=== PATIENT | female | born 1995 ===

== ENCOUNTER 2020-04-28 10:56 | Emergency (ER) | payer MEDICAID ==
--- NOTE | 2020-04-28 13:05 | Emergency Department Report ---
ED General Adult HPI - General Chief complaint: Vaginal Bleeding Stated complaint: VAGINAL BLEEDING Time Seen by Provider: 04/28/20 12:50 Source: patient Mode of arrival: Ambulatory Limitations: No Limitations - History of Present Illness Initial comments: Patient is a 24-year-old female who presents emergency room with complaints of "wanting to know if she has COVID-19." Patient states that she has had URI symptoms for 4 days. She states that she has had fever, chills, generalized body aches, cough, headache. She states that her boyfriend was at home sick prior to her becoming sick therefore she has had a sick contact with similar symptoms. She denies any vomiting, diarrhea, chest pain, abdominal pain, shortness of breath, productive cough. She denies any recent travel. Patient reports that she is also had some vaginal spotting for the last couple of days. She states that her last menstrual cycle was 04/11/2020. She denies any abdomi nal pain, pelvic pain, back pain, dysuria, urinary frequency, dark urine, odor to the urine, vaginal discharge, concern for STDs. She states that she does have a history of ovarian cyst and is not currently on any control. She states that she has had irregular cycles in the past. She denies any other past medical history. No allergies to medications. Severity scale (0 -10): 8 - Related Data Allergies Allergy/AdvReac Type Severity Reaction Status Date / Time No Known Allergies Allergy Unverified 04/28/20 11:47 ED Review of Systems ROS: Stated complaint: VAGINAL BLEEDING Other details as noted in HPI Comment: All other systems reviewed and negative ED Past Medical Hx - Past Medical History Previous Medical History?: No - Surgical History Past Surgical History?: Yes Additional Surgical History: left ACL repair. left meniscus repair ED Physical Exam - General Limitations: No Limitations General appearance: alert, in no apparent distress - Head Head exam: Present: atraumatic, normocephalic - Eye Eye exam: Present: normal appearance - ENT ENT exam: Present: mucous membranes moist - Respiratory Respiratory exam: Present: normal lung sounds bilaterally. Absent: respiratory distress, wheezes, rales, rhonchi, stridor, chest wall tenderness, accessory muscle use, decreased breath sounds, prolonged expiratory - Cardiovascular Cardiovascular Exam: Present: regular rate, normal rhythm, normal heart sounds. Absent: systolic murmur, diastolic murmur, rubs, gallop - GI/Abdominal GI/Abdominal exam: Present: soft, normal bowel sounds. Absent: distended, tenderness, guarding, rebound, rigid - Neurological Exam Neurological exam: Present: alert, oriented X3 - Psychiatric Psychiatric exam: Present: normal affect, normal mood - Skin Skin exam: Present: warm, dry, intact ED Course Vital Signs 04/28/20 04/28/20 04/28/20 11:48 14:16 14:18 Temperature 98.2 F 98.1 F Pulse Rate 76 75 Respiratory 18 17 17 Rate Blood Pressure 120/78 Blood Pressure 118/77 [Right] O2 Sat by Pulse 100 98 98 Oximetry 04/28/20 14:20 Temperature 98.1 F Pulse Rate 75 Respiratory 17 Rate Blood Pressure Blood Pressure 120/78 [Right] O2 Sat by Pulse 98 Oximetry ED Medical Decision Making - Lab Data Lab Results 04/28/20 Range/Units 13:12 Urine Color Yellow (Yellow) Urine Turbidity Slightly-cloudy (Clear) Urine pH 5.0 (5.0-7.0) Ur Specific [place] 1.023 (1.003-1.030) Urine Protein 30 mg/dl (Negative) mg/dL Urine Glucose (UA) Neg (Negative) mg/dL Urine Ketones Neg (Negative) mg/dL Urine Blood Lg (Negative) Urine Nitrite Neg (Negative) Urine Bilirubin Neg (Negative) Urine Urobilinogen < 2.0 (<2.0) mg/dL Ur Leukocyte Esterase Neg (Negative) Urine WBC (Auto) 2.0 (0.0-6.0) /HPF Urine RBC (Auto) 7.0 (0.0-6.0) /HPF U Epithel Cells (Auto) 11.0 (0-13.0) /HPF Urine Mucus Few /HPF Urine HCG, Qual Negative (Negative) - Medical Decision Making Patient is a 24-year-old female who presents emergency room with complaints of "wanting to know if she has COVID-19." Patient states that she has had URI symptoms for 4 days. She states that she has had fever, chills, generalized body aches, cough, headache. She states that her boyfriend was at home sick prior to her becoming sick therefore she has had a sick contact with similar symptoms. She denies any vomiting, diarrhea, chest pain, abdominal pain, shortness of breath, productive cough. She denies any recent travel. Patient reports that she is also had some vaginal spotting for the last couple of days. She states that her last menstrual cycle was 04/11/2020. She denies any abdominal pain, pelvic pain, back pain, dysuria, urinary frequency, dark urine, odor to the urine, vaginal discharge, concern for STDs. She states that she does have a history of ovarian cyst and is not currently on any control. She states that she has had irregular cycles in the past. She denies any other past medical history. No allergies to medications. Vitals are normal. No abnormality on physical examination as documented in chart. UA is normal. Urine is negative. Patient has no fever, no tachycardia, no hypoxia. Patient be referred to [facility] regarding bleeding between menstrual cycles, she denies any heavy bleeding or passing clots, she states that she is just having spotting, she states that she has had a regular cycles in the past. Patient has no clinical signs of bacterial pneumonia or bacterial bronchitis. She does not meet hospital criteria for COVID-19 admission or for COVID-19 hospital testing. Discussed COVID-19 with patient, discussed return precautions, discussed outpatient testing, discussed self quarantine. Advised patient please increase your fluid intake over the next several days. may take mucinex or theraflu for your symptoms. may alternate tylenol or ibuprofen for fever or headache or body aches. follow up with a primary care doctor. follow up with a [facility] [facility] regarding your abnormal bleeding. please self quarentine for 10 days from the onset of your symptoms. please receive outpatient COVID 19 testing. return to the emergency room for any new or worsening symptoms. Critical care attestation.: If time is entered above; I have spent that time in minutes in the direct care of this critically ill patient, excluding procedure time. ED Disposition Clinical Impression: Viral URI, Abnormal uterine bleeding (AUB) Disposition: - TO HOME OR SELFCARE Is pt being admited?: No Does the pt Need Aspirin: No Condition: Stable Instructions: Abnormal Uterine Bleeding, Viral Respiratory Infection Additional Instructions: please increase your fluid intake over the next several days. may take mucinex or theraflu for your symptoms. may alternate tylenol or ibuprofen for fever or headache or body aches. follow up with a primary care doctor. follow up with a [facility] regarding your abnormal bleeding. please self quarentine for 10 days from the onset of your symptoms. please receive outpatient COVID 19 testing. return to the emergency room for any new or worsening symptoms. your urine and urine test are negative Referrals: PRIMARY CARE, [Primary Care Provider] - 2-3 Days ROSE GUILLORY MD [Staff Physician] - 2-3 Days [facility] [Provider Group] - 2-3 Days [facility] [Provider Group] - 2-3 Days Forms: Work/School Release Form(ED) Time of Disposition: 13:51 Print Language: LATVIAN
[2020-04-28 13:45] LABS: Bilirubin,Urine NEG (Negative); Blood,Urine LG (Negative); Color,Urine Yellow (Yellow); Mucus,Urine FEW /HPF; Urobilinogen,Urine < 2.0 mg/dL (<2.0)
[2020-04-28 13:46] LABS: HCG Qualitative,Urine Negative (Negative)
[2020-04-28 14:20] VITALS: BP 120/78
== END 2020-04-28 14:22 | disposition home or self-care (01) ==
LOC: ED 10:56
DX: J06.9 Acute upper respiratory infection, unspecified (principal); B97.89 Other viral agents as the cause of diseases classified elsewhere; N93.8 Other specified abnormal uterine and vaginal bleeding; N93.9 Abnormal uterine and vaginal bleeding, unspecified; Z98.890 Other specified postprocedural states
CPT/HCPCS: 81001; 81025